=== PATIENT | female | born 1945 | race Caucasian/White ===

== ENCOUNTER 2018-01-06 13:00 | Outpatient (CLI) | payer MEDICARE ==
[2018-01-06 13:58] LABS: Estimated GFR-MDRD - POC Greater than 90
--- NOTE | 2018-01-06 15:03 | CT ---
CT ABDOMEN WITH AND WITHOUT IV CONTRAST: CT PELVIS WITH AND WITHOUT IV CONTRAST: 01/06/2018 HISTORY: Recurrent urinary tract infections. FINDINGS: There is minimal dependent atelectasis bilaterally. There is a metallic foreign body within the proximal body of the stomach. This may be iatrogenic and related to prior post surgical changes, but ingestion of a metallic foreign body is also a possibili ty. Clinical correlation is recommended. There is minimal cortical scarring involving each kidney, greater on the right. Subcentimeter, too-s [id number], hypodense lesions are seen in each kidney. No enhancing lesions are seen in ei ther kidney. No renal or ureteral calculi are seen, and there is no evidence of hydronephrosis. There is a 3.4 cm right adrenal lesion. This does not demonstrate an attenuation coefficient entirel y consistent with a simple adrenal adenoma and is also slightly larger in size than typical for an ad renal adenoma; however, this is felt to represent an adrenal adenoma. Additional imaging is recommen ded with a longer wash-out phase of imaging, following adrenal mass protocol, for a more adequate sushila luation, versus an MRI. The liver, spleen, pancreas, left adrenal glands, and urinary bladder demonstrate a normal CT appeara nce. There is evidence of a prior hysterectomy. There is colonic diverticulosis. The appendix is visualized and is normal in caliber. Vascular calcifications are seen in the abdominal aorta and in the iliac arteries. An IVC filter is noted in place. Degenerative changes are seen in the spine. There is no free fluid, fluid collection, or lymphadenopathy seen in the abdomen or pelvis. IMPRESSION: 1. Metallic density within the proximal body of the stomach. This may be related to post surgical c hange, but this could potentially represent ingestion of a foreign body. Clinical correlation is rec ommended. 2. Right adrenal lesion, which cannot be characterized as a simple adrenal adenoma, based on size an d attenuation coefficient. This may potentially represent a lipid poor adrenal adenoma, but further evaluation with either MRI or CT abdomen, following adrenal mass protocol, with greater length of kelsey e on delayed images to evaluate for wash-out. 3. Mild bilateral renal scarring with subcentimeter, hmx-qygcz-op-characterize hypodense lesions in each kidney. 4. No renal or ureteral calculi are seen bilaterally, and there is no hydronephrosis. No enhancing renal mass is visualized. 5. Cholecystectomy and hysterectomy. 6. Colonic diverticulosis. POS: [facility]
== END 2018-01-06 13:01 | disposition home or self-care (01) ==
LOC: CT 13:00
PROVIDERS: ATTEND Urology
DX: N39.0 Urinary tract infection, site not specified (principal); E27.8 Other specified disorders of adrenal gland; N28.89 Other specified disorders of kidney and ureter; K57.30 Diverticulosis of large intestine without perforation or abscess without bleeding; Z90.49 Acquired absence of other specified parts of digestive tract; Z90.710 Acquired absence of both cervix and uterus
CPT/HCPCS: 36415; 74178; 82565

== ENCOUNTER 2018-01-18 09:55 | Outpatient (CLI) | payer MEDICARE ==
[~2018-01-18 09:55] MED LIST: Iopamidol 370 76% 100 ML VIAL ONE
--- NOTE | 2018-01-18 13:04 | CT ---
ABDOMEN AND PELVIC CT SCAN WITH AND WITHOUT IV CONTRAST WITH MULTIPHASE IMAGING: HISTORY: A 72-year-old female with a history of recurrent urinary tract infection. COMPARISON: 01/06/18. FINDINGS: A tiny 0.3 cm diameter subpleural nodule in the anterior aspect of the inferior right middle lobe is incidentally seen. IVC filter in place. Stable 2.6 x 3.5 cm diameter right adrenal mass, evidence for an adenoma. Too small to characterize renal hypodensities bilaterally, statistically small cysts. Small right renal cortical scar. No renal calculi or acute obstruction. Unremarkable-appearing urinary bladder. N ormal-appearing appendix. IMPRESSION: Stable abdomen and pelvis CT scan. Too small to characterize renal hypodensities, statistically smal l cysts. No renal calculus or obstruction. Stable right adrenal mass, evidence for an adenoma. Tiny 0.3 cm subpleural nodule in the anterior right middle lobe of the lung, incidentally seen. POS: [facility]
== END 2018-01-18 09:56 | disposition home or self-care (01) ==
LOC: CT 09:55
PROVIDERS: ATTEND Urology
DX: N39.0 Urinary tract infection, site not specified (principal); D35.01 Benign neoplasm of right adrenal gland
CPT/HCPCS: 74178

== ENCOUNTER 2019-05-20 10:23 | Outpatient (CLI) | payer MEDICARE ==
--- NOTE | 2019-05-20 13:31 | CT ---
CT ABDOMEN WITH AND WITHOUT IV CONTRAST: HISTORY: Right adrenal. FINDINGS: There is a stable right adrenal mass measuring 3.6 cm in maximal dimensions which is unchanged in siz e. Absolute washout value of 78.4% was obtained, and absolute washout of 60% or higher is consistent with an adrenal adenoma. Minimal bibasilar atelectasis is present. The liver, spleen, pancreas, and left adrenal gland demonstrate a normal CT appearance. Minimal bila teral renal cortical scarring is present with stable too small to characterize subcentimeter hypodens e lesions in the inferior pole left kidney. Vascular calcifications are seen in the abdominal aorta involving the iliac arteries. There is a single small metallic foreign body along the greater curvature of the stomach. This metal lic foreign body is stable when compared to prior studies on 01/18/2018 and 01/06/2018. On the cardroom plastic card grader t opogram on the study on 01/18/2018, this linear metallic foreign body measures 10 mm. Exact etiology is uncertain. No other interval change. IMPRESSION: 1. Right adrenal mass stable in size from prior study in 2018, and absolute washout characteristics are most compatible with an adrenal adenoma. 2. Stable metallic foreign body along the greater curvature of the stomach. POS: [facility]
[2019-05-20] MEDS ORDERED: Iopamidol-370 76% 500 ML 1 ML ONE (15:24)
== END 2019-05-20 10:24 | disposition home or self-care (01) ==
LOC: BICCT 10:23
PROVIDERS: ATTEND Urology
DX: D35.01 Benign neoplasm of right adrenal gland (principal); T18.2XXA Foreign body in stomach, initial encounter; E27.8 Other specified disorders of adrenal gland
CPT/HCPCS: 74170; Q9967